=== PATIENT | male | born 1945 | race Caucasian/White ===

== ENCOUNTER 2018-11-20 13:49 | Observation (INO) | payer MEDICARE ==
[2018-11-20 14:56] LABS: ABS Eosinophils 0.2 10^3/ul (0-0.6); ABS Monocytes 0.5 10^3/ul (0-0.8); ABS Neutrophils 4.1 10^3/ul (1.5-7.7); Eosinophil % 3.2 %; Hematocrit 43 % (42-52); Hemoglobin 14.5 g/dL (14.0-18.0); Lymphocyte % 16.9 %; Mean Corpuscular HGB Conc 34 g/dL (31-36); Mean Corpuscular Hemoglobin 31 pg (27-31); Mean Corpuscular Volume 90 fL (80-94); Mean Platelet Volume 7.8 fL (7.4-10.4); Nucleated Red Blood Cells % 0.1; Platelet Count 247 10^3/uL (150-450); Red Blood Count 4.72 10^6 /uL (4.18-5.48); Red Cell Distribution Width 13 % (10.5-15); White Blood Count 5.9 10^3/uL (3.5-10.8)
[2018-11-20 15:16] LABS: Albumin 4.1 g/dL (3.2-5.2); Albumin/Globulin Ratio 1.6 (1-3); BUN/Creatinine Ratio 14.8 (8-20); Calcium 9.5 mg/dL (8.6-10.3); EGFR African American 81.1 (>60); Globulin 2.5 g/dL (2-4); Magnesium 2.2 mg/dL (1.9-2.7); Total Bilirubin 0.4 mg/dL (0.2-1.0); Total Protein 6.6 g/dL (6.4-8.9)
[2018-11-20 15:17] LABS: Potassium 5.1 mmol/L (3.5-5.0)
--- NOTE | 2018-11-20 15:26 | ED ---
Neurological HPI - HPI Summary HPI Summary: This pt is a 73 y/o male presenting to [facility] c/o intermittent episodes of numbness, tingling, and visual changes. Pt reports that the first episode happened 6 weeks ago when he experiences facial and lip numbness and fingertip tingling. He notes that this episode lasted about 1 minute and resolved on its own. A second episode happened 3 days ago when he was in an event and was drinking champagne and experienced blurry vision. This episode also lasted 1 minute and resolved on its own. Today pt experienced a third episode while driving. He describes his vision started to "break," had double vision, and felt lightheaded. Again this episode lasted about 1 minute and resolved on its own. Currently he only reports feeling tired. Denies weakness, numbness, neck pain right now. - History of Current Complaint Chief Complaint: EDNeurologicalDeficit Stated Complaint: DOCTOR THINKS I HAD A TIA PER PT Time Seen by Provider: 11/20/18 15:15 Hx Obtained From: Patient Onset/Duration: Started weeks ago, Still Present Timing: Intermittent Episodes Lasting: - about 1 minute Onset Severity: Mild Current Severity: None Neurological Deficit Location: Facial - numbness Pain Intensity: 0 Pain Scale Used: 0-10 Numeric Character: Lightheaded - today, Numbness/Tingling - facial numbness and tingling in fingertips about 6 weeks ago, Visual Changes - blurred vision today Aggravating: Nothing Alleviating: Spontanious Resolution Associated Signs and Symptoms: Positive: Visual Changes - blurry vision and double vision, Numbness - facial, Lightheadness. Negative: Weakness, Fever - Allergy/Home Medications Allergies/Adverse Reactions: Allergies Allergy/AdvReac Type Severity Reaction Status Date / Time No Known Allergies Allergy Verified 11/20/18 13:56 PMH/Surg Hx/FS Hx/Imm Hx Endocrine/Hematology History: Denies: Hx Diabetes Cardiovascular History: Denies: Hx Hypertension, Hx Pacemaker/ICD Respiratory History: Reports: Hx Asthma History: Denies: Hx Renal Disease Sensory History: Denies: Hx Hearing Aid Psychiatric History: Denies: Hx Panic Disorder - Surgical History Surgery Procedure, Year, and Place: VARICOSE VEIN -Rt LEG Infectious Disease History: No Infectious Disease History: Denies: Traveled Outside the [place] in Last 30 Days - Family History Known Family History: Positive: Hypertension - Father Family History: colon CA. Mother with Alzheimer's disease. - Social History Alcohol Use: Occasionally Smoking Status (MU): Never Smoked Tobacco Review of Systems Positive: Fatigue. Negative: Fever, Chills Positive: Blurred Vision, Diplopia Negative: Other - NEG: neck pain Neurological: Other - POS: lightheaded Positive: Paresthesia - in left fingers, now resolved, Numbness - in face, now resolved. Negative: Weakness All Other Systems Reviewed And Are Negative: Yes Physical Exam - Summary Physical Exam Summary: VITAL SIGNS: Reviewed. GENERAL: Patient is a well-developed and nourished male who is lying comfortable in the stretcher. Patient is not in any acute respiratory distress. HEAD AND FACE: No signs of trauma. No ecchymosis, hematomas or skull depressions. No sinus tenderness. EYES: PERRLA, EOMI x 2, No injected conjunctiva, no nystagmus. No photophobia. EARS: Hearing grossly intact. Ear canals and tympanic membranes are within normal limits. MOUTH: Oropharynx within normal limits. NECK: Supple, trachea is midline, no adenopathy, no JVD, no carotid bruit, no c- spine tenderness, neck with full ROM. No meningeal signs, no Kernig's or brudzinskis signs. CHEST: Symmetric, no tenderness at palpation LUNGS: Clear to auscultation bilaterally. No wheezing or crackles. CVS: Regular rate and rhythm, S1 and S2 present, no murmurs or gallops appreciated. ABDOMEN: Soft, non-tender. No signs of distention. No rebound no guarding, and no masses palpated. Bowel sounds are normal. EXTREMITIES: FROM in all major joints, no edema, no cyanosis or clubbing. NEURO: Alert and oriented x 3. No acute neurological deficits. Speech is normal and follows commands. SKIN: Dry and warm. GCS: 15 Triage Information Reviewed: Yes Vital Signs On Initial Exam: Initial Vitals Temp Pulse Resp BP Pulse Ox 97.5 F 81 16 156/104 97 11/20/18 13:51 11/20/18 13:51 11/20/18 13:51 11/20/18 13:51 11/20/18 13:51 Vital Signs Reviewed: Yes Diagnostics - Vital Signs Vital Signs Temp Pulse Resp BP Pulse Ox 11/20/18 13:51 97.5 F 81 16 156/104 97 - Laboratory Lab Results: Lab Results 11/20/18 11/20/18 11/20/18 Range/Units 14:49 14:49 14:49 WBC 5.9 (3.5-10.8) 10^3/uL RBC 4.72 (4.18-5.48) 10^6 /uL Hgb 14.5 (14.0-18.0) g/dL Hct 43 (42-52) % MCV 90 (80-94) fL MCH 31 (27-31) pg MCHC 34 (31-36) g/dL RDW 13 (10.5-15) % Plt Count 247 (150-450) 10^3/uL MPV 7.8 (7.4-10.4) fL Neut % (Auto) 70.0 % Lymph % (Auto) 16.9 % Roane % (Auto) 9.2 % Eos % (Auto) 3.2 % Baso % (Auto) 0.7 % Absolute Neuts (auto) 4.1 (1.5-7.7) 10^3/ul Absolute Lymphs (auto) 1.0 (1.0-4.8) 10^3/ul Absolute Monos (auto) 0.5 (0-0.8) 10^3/ul Absolute Eos (auto) 0.2 (0-0.6) 10^3/ul Absolute Basos (auto) 0.0 (0-0.2) 10^3/ul Absolute Nucleated RBC 0.0 10^3/ul Nucleated RBC % 0.1 Sodium 139 (135-145) mmol/L Potassium 5.1 H (3.5-5.0) mmol/L Chloride 107 (101-111) mmol/L Carbon Dioxide 29 (22-32) mmol/L Anion Gap 3 (2-11) mmol/L BUN 16 (6-24) mg/dL Creatinine 1.08 (0.67-1.17) mg/dL Est GFR ( Amer) 81.1 (>60) Est GFR (Non-Af Amer) 67.0 (>60) BUN/Creatinine Ratio 14.8 (8-20) Glucose 107 H (70-100) mg/dL Lactic Acid 0.8 (0.5-2.0) mmol/L Calcium 9.5 (8.6-10.3) mg/dL Magnesium 2.2 (1.9-2.7) mg/dL Total Bilirubin 0.40 (0.2-1.0) mg/dL AST 21 (13-39) U/L ALT 20 (7-52) U/L Alkaline Phosphatase 75 (34-104) U/L Troponin I 0.00 (<0.04) ng/mL Total Protein 6.6 (6.4-8.9) g/dL Albumin 4.1 (3.2-5.2) g/dL Globulin 2.5 (2-4) g/dL Albumin/Globulin Ratio 1.6 (1-3) TSH Pending Result Diagrams: 11/20/18 14:49 11/20/18 14:49 Lab Statement: Any lab studies that have been ordered have been reviewed, and results considered in the medical decision making process. - CT Brain CT CT Interpretation Completed By: Radiologist Summary of CT Findings: IMPRESSION: Negative unenhanced head CT. Dr. Kay has reviewed this report. CTA Head/Neck CT Interpretation Completed By: Radiologist Summary of CT Findings: IMPRESSION: Negative for carotid or vertebral artery occlusion or stenosis. No central intractranial large vessel arterial occlusion or hemodynamically significant stenosis. Normal variant anatomy at the anterior and posterior circulation as described. Dr. Kay has reviewed thsi report. - EKG 14:19 Cardiac Rate: NL - at 73 bpm EKG Rhythm: Sinus Rhythm Summary of EKG Findings: No ST elevations. Normal axis. NIH Scale - NIH Scale Level of Consciousness: Alert/Keenly Responsive Ask Patient the Month and His/Her Age: Both Correct Ask Pt to Open/Close Eyes and Manager Shop/Release Non-Paretic Hand: Both Correctly Best Gaze (Only Horizontal Eye Movement): Normal Visual Field Testing: No Visual Loss Facial Paresis-Pt to Smile & Close Eyes or Grimace Symmetry: Normal/Symmetrical Motor Function - Right Arm: No Drift-Holds 10 Seconds Motor Function - Left Arm: No Drift-Holds 10 Seconds Motor Function - Right Leg: No Drift-Holds 10 Seconds Motor Function - Left Leg: No Drift-Holds 10 Seconds Limb Ataxia-Must be out of Proportion to Weakness Present: Absent Sensory (Use Pinprick to Test Arms/Legs/Trunk/Face): Normal Best Language (Describe Picture, Name Items): No Aphasia Dysarthria (Read Several Words): Normal Extinction and Inattention: No Abnormality Total Score: 0 Course/Dx - Course Assessment/Plan: This pt is a 73 y/o male presenting to [facility] c/o intermittent episodes of numbness, tingling, and visual changes. Pt reports that the first episode happened 6 weeks ago when he experiences facial and lip numbness and fingertip tingling. He notes that this episode lasted about 1 minute and resolved on its own. A second episode happened 3 days ago when he was in an event and was drinking champagne and experienced blurry vision. This episode also lasted 1 minute and resolved on its own. Today pt experienced a third episode while driving. He describes his vision started to "break," had double vision, and felt lightheaded. Again this episode lasted about 1 minute and resolved on its own. Currently he only reports feeling tired. Denies weakness, numbness, neck pain right now. normal. No significant past medical history. Blood test results without any significant abnormality except potassium 5.[address] impression: Negative unenhanced head CT. I discussed my physical exam and findings with Dr. Mckeon from neurology and he recommends Aspirin, Plavix, CTA head and neck, and an echo for the patient. He also recommends for the patient to be admitted to the hospitalist for further workup and management. He will consult for this patient. I discussed my physical exam , findings and test results with Dr. Ritter from the hospitalist services and he agrees to admit patient to his services. Patient is hemodynamically stable, alert and oriented x 3. - Diagnoses Provider Diagnoses: TIA (transient ischemic attack) - Physician Notifications Discussed Care Of Patient With: Sid Mckeon Time Discussed With Above Provider: 16:58 Instructed by Provider To: Other - Discussed the case with Dr. Mckeon, neurologist, who recommends aspirin, Plavix, CTA, echo, and admission to hospitalist. [17:03] Discussed with Dr. Ritter, hospitalist, who accepted the pt for admission. - Critical Care Time Critical Care Time: 30-74 min Discharge - Sign-Out/Discharge Documenting (check all that apply): Patient Departure - Admit to [facility] Patient Received Moderate/Deep Sedation with Procedure: No - Discharge Plan Condition: Stable Disposition: ADMITTED TO [facility] Referrals: Caesar Garcia MD [Primary Care Provider] - - Attestation Statements Document Initiated by Scribe: Yes Documenting Scribe: Eileen Zhang Provider For Whom Scribe is Documenting (Include Credential): Preston Kay MD Scribe Attestation: Eileen Tiwari, scribed for Preston Kay MD on 11/20/18 at 1909. Status of Scribe Document: Ready
[2018-11-20 15:54] LABS: TSH (Thyroid Stimulating Horm) 1.61 mcIU/mL (0.34-5.60)
[2018-11-20] MEDS ORDERED: Aspirin 81 mg CHEW TAB* 81 MG TAB.CHEW PO ONE (17:00)
[2018-11-20] MEDS ORDERED: Clopidogrel TAB* 75 MG PO ONE (17:00)
[2018-11-20] MEDS ORDERED: Iohexol 350* (CONTRAST) 500 ML MDV IV ONE (17:06)
[2018-11-20] MEDS ORDERED: Acetaminophen TAB* 325 MG PO PRN (20:26)
[2018-11-20] MEDS ORDERED: Albuterol HFA INHALER* 8 gm MDI INH PRN (20:40)
[2018-11-20] MEDS ORDERED: Enoxaparin(*) 40 MG/0.4 ML SYR SUBCUT SCH (21:00)
--- NOTE | 2018-11-20 23:57 | HP ---
HISTORY AND PHYSICAL: DATE OF ADMISSION: 11/20/18 PROVIDER: Angeal Ramirez NP PRIMARY CARE PROVIDER: Dr. Garcia. ATTENDING PHYSICIAN WHILE IN THE HOSPITAL: Dr. Joann Christiansen * (dictated by Angela Ramirez NP). CHIEF COMPLAINT: Visual changes. HISTORY OF PRESENT ILLNESS: Mr. Starr is a 73-year-old male with a past medical history significant for enlarged prostate and asthma, history of Lyme disease who presented to the emergency room after an episode of blurred vision while driving. The patient reports that he was unable to focus. The symptoms lasted for 1 to 2 minutes and then resolved. He states that his head felt fuzzy and he felt tired after the episode. He denied any dizziness, but did report that he felt lightheaded. He reports that approximately 6 weeks ago, his left eyebrow, left lip, and left hand had some tingling. Again, that episode lasted briefly and then resolved. He reports that this past , again he had visual changes where he was unable to focus, his vision was blurred. He reports again that lasted for approximately 1 minute and then resolved with no residual symptoms. Given this being his third episode in the past 6 weeks, he called his primary care doctor who recommended he present to the emergency room for further evaluation. While in the emergency room, the patient had routine lab work drawn. He had a CT of the brain that showed no acute intracranial pathology, and we were asked to see and evaluate him to rule out TIA. PAST MEDICAL HISTORY: 1. Enlarged prostate. 2. Asthma. 3. History of Lyme disease. SURGICAL HISTORY: The patient had varicose vein surgery at the age of 18. HOME MEDICATIONS: Include ProAir 1 puff q.4 hours as needed for shortness of breath. ALLERGIES: No known drug allergies. FAMILY HISTORY: Father and brother had cerebral aneurysm and hemorrhage. Grandfather had diabetes in his 70s. Maternal grandmother with pancreatic cancer. SOCIAL HISTORY: The patient reports he quit smoking many years ago; in his lifetime, he smoked half a pack a day for a total of 2 years. He does report 1 to 2 glasses of wine daily. Denies any illicit drug use. Surrogate decision maker in the event he is unable to make his own decision is his daughter, Dolores. He is a full code. REVIEW OF SYSTEMS: He denies any fever, unintended weight loss, chest pain, edema, cough, hemoptysis, or shortness of breath. Denies any nausea, vomiting, diarrhea, or abdominal pain. He denies any gross hematuria or dysuria. He denies any focal weaknesses or sensory loss. He does report blurred vision, lightheadedness, fatigue, and head feeling fuzzy after his episode of blurred vision that lasted 1 to 2 minutes. Denies any dysphagia, arthralgias, myalgias , rashes, lesions, or open sores. Denies any psychosis or anxiety. PHYSICAL EXAMINATION GENERAL: At this time, Mr. Starr is a 73-year-old male. He is well developed , well nourished, resting on the stretcher in the emergency room. He is in no acute distress. VITAL SIGNS: Blood pressure 164/94, heart rate 72, respirations 16, O2 saturation 97%, temperature 97.5. HEENT: Head is atraumatic, normocephalic. Eyes: EOMs are intact. Sclerae anicteric and not pale. Pupils are 2 mm and equal and reactive to light. Mucous membranes are moist. NECK: Supple. LUNGS: Clear to auscultation bilaterally. No wheezes, rales, or rhonchi. CARDIAC: S1, S2. Regular rate and rhythm. No murmurs, rubs, or gallops. ABDOMEN: Soft and nontender. Bowel sounds are present x4. EXTREMITIES: He is able to move all 4 extremities with 5/5 strength. There is no clubbing or cyanosis. Pedal pulses are +2 bilaterally. Radial pulses are + 2 bilaterally. NEUROLOGIC: He is awake, alert, oriented x3. Speech is clear. Thought process is intact. Cranial nerves II through XII are grossly intact. Finger-to -nose is intact. Smile is equal. Tongue is midline. There is no facial asymmetry. There is no pronator drift. There is no leg drift. Push/pull is intact. [id number] is intact. Sensation is intact. SKIN: Intact. LABORATORY DATA AND DIAGNOSTIC STUDIES: WBCs are 5.9, RBCs 4.72, hemoglobin 14.5, hematocrit 43, platelet count 247. Sodium 139, potassium 5.1, chloride 107, carbon dioxide was 29, anion gap was 3, BUN was 16, creatinine 1.08, glucose was 107, lactic acid 0.8, calcium 9.5, magnesium 2.2. Total bilirubin 0.40, ASTs were 21, ALTs were 20, alkaline phosphatase 75. Troponin 0.00. TSH was 1.61. He had a CT of the brain. Radiologist's impression: Negative unenhanced CT of the brain. He had a CTA of the head and neck. Radiologist's impression: Patent codominant vertebral arteries. No central intracranial large vessel arterial occlusion or hemodynamically significant stenosis. Normal variant anatomy of anterior and posterior circulation as described. He had an electrocardiogram which showed sinus rhythm at a rate of 73, no ST or T wave changes. ASSESSMENT AND PLAN: Mr. Starr is a 73-year-old male with a past medical history significant for enlarged prostate and asthma, history of Lyme disease who presented to the emergency room with complaints of blurred vision lasting 1 to 2 minutes that completely resolved prior to arrival. He will be admitted for TIA rule out. 1. Blurred vision. I suspect this could be related to TIA. We will complete a TIA workup with an MRI of the brain. He has had a CTA of the neck and a CTA of the brain that did not show any acute intracranial pathology and there was no significant stenosis on the CTA of the head and neck. There was no arterial occlusion. Dr. Otero was consulted by the emergency room and recommended aspirin 324 mg and Plavix 75, which the patient received in the emergency room. I will continue him on aspirin 81 mg p.o. daily. I will get a lipid profile and an MRI of the brain. I will get a transthoracic echocardiogram with bubble study. 2. Asthma. The patient uses ProAir as needed for shortness of breath or wheezing. 3. FEN. He can have a regular diet. 4. Code status: He is a full code. 5. DVT prophylaxis. I will place him on Lovenox subcu. TIME SPENT: Time spent on this admission was approximately 60 minutes, greater than half that time was spent at the bedside reviewing events leading thus far to his hospitalization, performing physical exam, and reviewing my plan of care. I have discussed this with my attending, Dr. Joann Christiansen, she is in agreement with my plan. ANGELA RAMIREZ, COBBLER APPRENTICE [id number]/[facility] #: [id number] [facility] MEDICAL CENTERSteven
[2018-11-21 07:15] LABS: HDL Cholesterol 43.2 mg/dL
[2018-11-21 08:47] LABS: BUN/Creatinine Ratio 18.8 (8-20); Calcium 9.2 mg/dL (8.6-10.3); EGFR African American 92.9 (>60); EGFR Non-African American 76.8 (>60); Potassium 3.8 mmol/L (3.5-5.0)
[2018-11-21] MEDS ORDERED: Aspirin EC TAB* 81 MG TAB.EC PO SCH (09:00)
[2018-11-21] MEDS ORDERED: Clopidogrel TAB* 75 MG PO SCH (09:00)
--- NOTE | 2018-11-21 10:03 | ECHO ---
*[facility]* [place] [address] Fax #: [phone] Transthoracic Echocardiogram Patient: Matty, Height: 73 in / Christiano J 185.4 cm : 1945 Weight: 169.6 lb / Study Date: 11/21/2018 77.1 kg Age: 73 BP: 114 / 63 Gender: M BMI/BSA: 22.4 kg/m^2 HR: 84 bpm / 2.01 m^2 *Distance Learning Administrator: * Dilcia Sorto [facility] *Referring Physician: * Angela Ramirez *Reading Physician: * Yfn Newman MD Indications: TIA. History: PMH: Asthma. Lyme Disease. Conclusions Summary: 1. Left ventricle: Systolic function is at the lower limits of normal. The estimated ejection fraction is 50-55%. Wall motion is normal; there are no regional wall motion abnormalities. 2. Right ventricle: Systolic function is normal. 3. Atrial septum: A PFO is demonstrated by agitated saline contrast. 4. Mitral valve: There is mild regurgitation. 5. Aortic valve: There is no evidence of stenosis. There is trace regurgitation. 6. Pericardium, extracardiac: There is no pericardial effusion. Study data: Transthoracic echocardiogram. Procedure: Transthoracic echocardiography was performed. Image quality was fair. A bubble study was performed. Images 96 and 97. Complete 2D, spectral Doppler, and color flow Doppler. Location: Bedside. Patient status: Inpatient. Patient room number: 441-2. Rhythm: Normal sinus rhythm with PVC's. Findings Left ventricle: The cavity size is normal. Wall thickness is normal. Systolic function is at the lower limits of normal. The estimated ejection fraction is 50-55%. Wall motion is normal; there are no regional wall motion abnormalities. Doppler parameters are consistent with abnormal left ventricular relaxation (grade 1 diastolic dysfunction). Right ventricle: The cavity size is mildly dilated. Systolic function is normal. Left atrium: The atrium is normal in size. Right atrium: The atrium is mildly dilated. Atrial septum: A PFO is demonstrated by agitated saline contrast. Mitral valve: The leaflets are mildly thickened. There is no evidence of stenosis. There is mild regurgitation. Aortic valve: The valve is trileaflet. The leaflets are mildly thickened. There is no evidence of stenosis. There is trace regurgitation. Tricuspid valve: The leaflets are normal thickness. There is no evidence of stenosis. There is mild regurgitation. Pulmonic valve: The leaflets are normal thickness. There is no evidence of stenosis. There is trace regurgitation. Aorta: Ascending aorta: The ascending aorta is upper normal in size. Aortic arch: The aortic arch is appears normal. The aortic root is not dilated. Pericardium: A prominent pericardial fat pad is present. There is no pericardial effusion. Pulmonary arteries: The main pulmonary artery is normal-sized. Systolic pressure is within the normal range. Systemic veins: Inferior vena cava: The vessel is dilated. The respirophasic diameter changes are in the normal range (>= 50%). Measurements Left ventricle Value Ref Aortic valve Value Ref NUZHAT, LAX 4.6 cm 4.2 - 5.8 Rita diam, ED 2.2 cm ----- ESD, LAX 3.1 cm 2.5 - 4.0 Peak v, S 1.04 m/sec ----- FS, LAX 34 % 25 - 43 VTI, S 21.8 cm ----- PW, ED, LAX 0.9 cm 0.6 - 1.0 Mean grad, S 2.0 mm Hg ----- FS 34 % 25 - 43 Peak grad, S 4.0 mm Hg ----- PW, ED 0.9 cm 0.6 - 1.0 LVOT/AV, VTI ratio 0.83 ----- E', lat rita, TDI (L) 6.9 cm/sec >=10.0 E/e', lat rita, 9 Mitral valve Value Ref TDI Peak E 0.66 m/sec ----- E', med rita, TDI 10.2 cm/sec >=7.0 Peak A 0.73 m/sec --- -- E/e', med rita, 6 Decel time 187 ms ----- TDI Peak E/A ratio 0.9 ----- E', avg, TDI 8.6 cm/sec E/e', avg, TDI 8 <=14 Pulmonic valve Value Ref Peak v, S 1.23 m/sec ----- LVOT Value Ref Peak grad, S 6.0 mm Hg ----- Peak vanessa, S 0.93 m/sec VTI, S 18.0 cm Tricuspid valve Value Ref Mean grad, S 2 mm Hg TR peak v 2.3 m/sec <=2.8 Peak RV-RA grad, S 21 mm Hg ----- Ventricular septum Value Ref IVS, ED 1.0 cm 0.6 - 1.0 Aortic root Value Ref Root diam 3.1 cm <4.1 Right ventricle Value Ref NUZHAT, LAX 3.5 cm Ascending aorta Value Ref NUZHAT minor ax, A4C (H) 5.0 cm 1.9 - 3.5 AAo AP diam, S 3.6 cm ----- mid Pressure, S 29 mm Hg Aortic arch Value Ref Arch diam 2.8 cm ----- Left atrium Value Ref AP dim, ES 3.20 cm 3.00 - Decending aorta Value Ref 4.00 Gagan peak vanessa 0.66 m/sec ----- ML dim, A4C 4.6 cm SI dim, A4C 4.5 cm Pulmonary artery Value Ref Vol/bsa, ES, 1-p 21 ml/m^2 12 - 37 Pressure, S 23.0 mm Hg ----- A4C Vol/bsa, ES, A/L 25 ml/m^2 16 - 34 Inferior vena cava Value Ref Diam 2.2 cm ----- Right atrium Value Ref SI dim, ES (H) 5.8 cm 3.4 - 5.3 ML dim, ES, A4C (H) 5.1 cm 2.6 - 4.4 SI dim, ES, A4C (H) 5.8 cm 3.4 - 5.3 Estimated RAP 8 mm Hg Legend: (L) and (H) joanie values outside specified reference range. Prepared and electronically signed by Yfn Newman MD 11/21/2018 10:03
[2018-11-21 11:50] VITALS: BP 130/80
--- NOTE | 2018-11-21 16:56 | CONS ---
NEUROLOGICAL CONSULTATION: DATE OF CONSULT: 11/21/18 PATIENT OF: ERUM Bender and Dr. Garcia. 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 This was not accompanied by any headaches. In the past year or two, this has gotten more frequent and is associated with changes in the brand of coffee he drinks. Things were escalating even more in the past month or two and he was making different changes in the type of coffee he was drinking. He has had 2 additional episodes , 1 on and then 1 yesterday where his vision became fractured. It was how he described the things were distorted in a broken manner, somewhat like a prism or looking through a kaleidoscope but not quite. He can see the background through the distorted vision and he was able to drive home with the second of the 2 episodes. These lasted just a few minutes time. With the last one, he felt somewhat lightheaded. He had about 5 or 6 weeks ago one of his more typical optical migraines with a dot in the center expanding. Also of note , about 4 weeks ago, he had an episode lasting a minute or two of numbness beginning in his mouth, then going to his cheek and his eyebrow and then extending to his left hand. There was no alteration of consciousness during it , no weakness, no abnormal movements, no leg involvement. PAST MEDICAL HISTORY: Significant for enlarged prostate, asthma, and history of Lyme disease. PAST SURGICAL HISTORY: He has had varicose vein surgery at age 18. MEDICATIONS: He is on ProAir 1 puff q.4 hours as needed. ALLERGIES: He has no known drug allergies. FAMILY HISTORY: The father and brother had cerebral aneurysm and hemorrhage. There is no history of atrial fibrillation in the family. SOCIAL HISTORY: He quit smoking many years ago, but he smoked half-a-pack a day for about 2 years' time. He drinks a glass of wine or so a day. REVIEW OF SYSTEMS: Negative in all 14 spheres other than HPI. PHYSICAL EXAM: Temperature 97.6, pulse 72, respirations 16, blood pressure 130/ 80. He is alert and oriented with normal speech and comprehension. Cranial nerves II through XII were intact. Fundi were benign. Motor exam revealed normal tone, strength, coordination, and gait. Sensation intact to light touch and vibration. Reflexes 2 and equal, downgoing toes. Romberg was negative. Chest: Clear. Cardiovascular: Regular rate and rhythm. Abdomen is soft with positive bowel sounds. DIAGNOSTIC STUDIES/LAB DATA: I reviewed his MRI scan, which was normal. His CTA of head and neck did not show any aneurysm or significant atherosclerotic disease or stenosis. There is some mild plaque noted. His transesophageal echo is noted to show a PFO and the hospitalist is checking with plodding machine operator to see size and exact anatomy of the atrium. His LDL was 109. CBC was normal. TSH was normal. CMP was normal. IMPRESSION AND PLAN: Mr. Starr has a couple of neurological issues. He has had what sounds like optical migraines for many years that may be changing as he gets older, getting more frequent and it is possible that the coffee he drinks is making things worse and possibly even changing the quality of his migraines. I think not only the spot in front of his eyes with shimmering outwards those symptoms of migraines, but I think that the fractured vision and the visual distortions that he has complained of on 2 occasions most recently sound more migrainous than stroke or transient ischemic attack. Of additional concern is his event 4 weeks ago of the left-sided numbness that spread from his face to his forehead to his left hand. Since he has never had focal deficits like this with his migraines, given his age, I think this is more likely a transient ischemic attack than a hemiparetic or focal migraine. I feel the possibility could be a seizure, but it occurred without any other abnormal movements or alteration of consciousness and I think in isolation this is unlikely to be a seizure. If his EEG is normal, I would not treat with antiseizure medicine. If this was a transient ischemic attack, this happened 4 weeks ago, so he passed the time that aspirin and Plavix combination would likely be beneficial and I will just have him on aspirin now. I discussed that the evidence supporting use of a statin in somebody who has had a transient ischemic attack and LDL above 70. I have also discussed with him in detail the issue of the patent foramen ovale and that the hospitalist is going to be speaking to Dr. Newman in terms of how significant the finding this was. I discussed with him that since he has no clear evidence of significant atherosclerotic disease on his CTA and that he is in good general shape, it is possible that if this was a transient ischemic attack, it would not be due to atherosclerotic disease, but it could be due to something like atrial fibrillation. I discussed the significance of that is if he has a transient ischemic attack or stroke due to a clot from the heart, then there would be a strong indication to be on anticoagulation rather than antiplatelet therapy. This would significantly reduce the risk of further stroke. I discussed that having a loop recorder electrode monitor him long-term for atrial fibrillation had a descent possibility that it would roller picker atrial fibrillation and that would make a big difference in his care, although more likely than not it would be a normal study. He is going to think about whether he wants the loop recorder electrode and talk to the hospitalist whether he wants to pursue this and I have a call in to the hospitalist. Thank you for sharing his case. [id number]/[facility] #: [id number] GEENA
--- NOTE | 2018-11-22 03:52 | DS ---
CC: Dr. Garcia; Dr. Mckeon.* DISCHARGE SUMMARY: DATE OF ADMISSION: 11/20/18 DATE OF DISCHARGE: 11/21/18 PROVIDER: ERUM Bender ATTENDING PHYSICIAN: Daniel Candelaria MD * (dictated by ERUM Bender). PRIMARY CARE PROVIDER: Dr. Garcia. CONSULTING NEUROLOGIST: Dr. Mckeon. PRIMARY DIAGNOSIS: Transient ischemic attack. SECONDARY DIAGNOSES: 1. History of optical migraines. 2. Enlarged prostate. 3. Asthma. 4. History of Lyme disease. STUDIES WHILE IN THE HOSPITAL: EEG on 11/21/18 found to be normal by Dr. Mckeon. Transthoracic echocardiogram on 11/19/18 with a positive bubble study, otherwise normal and ejection fraction of 50% to 55%. Please see report for further details. Brain MRI on 11/19/18 without acute intracranial abnormality and brain CT on 12/06 negative. PERTINENT LAB DATA: LDL 109. DISCHARGE MEDICATIONS: 1. Aspirin 81 mg p.o. daily. 2. Atorvastatin 10 mg p.o. daily. Continued home medications: 1. Albuterol inhaler 1 puff inhaled q. 4 hours p.r.n. shortness of breath or wheezing. HISTORY OF PRESENT ILLNESS/HOSPITAL COURSE: Christiano Starr is a 73-year-old male with history of optical migraines who presents to the emergency department with sudden change of vision that was different from his typical optical migraine. Please see admitting history and physical by Angela Ramirez NP from 11/19/18 for further details. During his hospital stay, his testing was overall negative except for a small positive bubble study and echocardiogram. This demonstrated a PFO, which was found to be small by Dr. Newman and no further imaging was deemed necessary. Dr. Mckeon considered the possibility of seizure and possibility of optical migraine which explained the patient's visual symptoms; however, he believes that this prior upper extremity numbness is due to a TIA and therefore would like to treat accordingly. It is of note that the patient was considering refusing taking Lipitor but has not yet decided at time of discharge whether he will take the medication or not. He additionally is hesitant to follow regarding implantable loop recorder, which was suggested that followup for by Dr. Mckeon. On date of discharge, the patient is feeling well. He has known recurrence of symptoms upon emergency department. He denies unilateral numbness, facial numbness, unilateral weakness, new changes in vision, chest pain, difficulty breathing, chest palpitations, abdominal pain. REVIEW OF SYSTEMS: An 11-point review of systems was completed and all pertinent positives and negatives as above in the HPI. All other systems are negative. PHYSICAL EXAMINATION: General: Thin, elderly white male, who appears younger than stated age, lying in hospital bed, appearing in no acute distress. His daughter is at bedside. Head: Normocephalic, atraumatic. Eyes: No nystagmus. PERRL. Sclerae anicteric. EOMI. ENT: Mucous membranes are moist. Neck: Supple without JVD. Cardiac: Regular rate and rhythm without murmur, rubs, or gallops. Lungs: Clear to auscultation throughout. Abdomen: Abdomen is soft, nontender, nondistended. Extremities: No clubbing, edema, or cyanosis. Neuro: Strength 5/5 in all extremities. Sensation equal and intact bilaterally. No focal deficits. Cranial nerves II through XII are grossly intact. The patient is alert and oriented x3. Skin: Skin is warm, dry and intact. DISCHARGE PLAN: Diet: Regular diet. Activity: The patient may return to his regular activity. The patient is advised to begin taking 10 mg of atorvastatin as prescribed. Dr. Mckeon recommends LDL control of less than 70 as per TIA, this should be followed up by his primary care provider in the assisted. It is recommended that he follow up with his primary care provider within 7 to 10 days regarding this hospitalization. At this time, it is recommended that the primary care provider provide an implantable loop recorder to further determine if patient is experiencing any atrial fibrillation or other arrhythmias, essentially considering the PFO that is present. The patient is recommended to continue aspirin and statin. No follow up with Dr. Mckeon is needed at this time. CONDITION ON DISCHARGE: Stable. DISPOSITION: Home. TIME SPENT: Approximately 40 minutes was spent on this discharge, approximately half of this time was spent at bedside. ERUM BENDER [id number]/[facility] #: [id number] [facility] C[facility]ERSteven
== END 2018-11-21 17:32 | disposition home or self-care (01) ==
LOC: ED 13:49 → MEDTELE 20:26
PROVIDERS: ADMIT Pediatrics; ATTEND Internal Medicine
DX: G45.9 Transient cerebral ischemic attack, unspecified (principal); R53.83 Other fatigue; G43.909 Migraine, unspecified, not intractable, without status migrainosus; N40.0 Benign prostatic hyperplasia without lower urinary tract symptoms; J45.909 Unspecified asthma, uncomplicated; Z86.19 Personal history of other infectious and parasitic diseases; Z79.82 Long term (current) use of aspirin; Z87.891 Personal history of nicotine dependence; H53.8 Other visual disturbances
CPT/HCPCS: 36415; 70450; 70496; 70498; 70551; 80048; 80053; 80061; 83605; 83735; 84443; 84484; 85025; 93005; 93306; 95816; 96372; 99284; A9270-GY; G0378; J1650; Q9967